=== PATIENT | male | born 1955 | race Caucasian/White ===

== ENCOUNTER 2018-03-11 12:43 | Emergency (ER) | payer OTHER, MEDICAID ==
[2018-03-11] MEDS: morphine 4 MG/ML VIAL IM (13:47)
[2018-03-11] MEDS: ONDANSETRON (ODT) 4 MG TAB ODT (13:47)
[2018-03-11 13:54] LABS: ADD UMIC YES; UR ASCORBIC ACID NEGATIVE (NEGATIVE); UR BACTERIA FEW /HPF (NONE SEEN); UR BILIRUBIN (Dip) NEGATIVE (NEGATIVE); UR BLOOD (Dip) 1+ mg/dL (NEGATIVE); UR CLARITY TURBID (CLEAR); UR COLOR YELLOW (YELLOW); UR GLUCOSE (Dip) NEGATIVE (NEGATIVE); UR KETONES (Dip) TRACE mg/dL (NEGATIVE); UR LEUKOCYTE ESTERASE (Dip) 3+ Leu/ul (NEGATIVE); UR MUCUS FEW /HPF (NONE SEEN); UR NITRITE (Dip) POSITIVE (NEGATIVE); UR RBC 28 /HPF (0-5); UR SPECIFIC GRAVITY (Dip) 1.009 (1.003-1.030); UR TOTAL PROTEIN (Dip) 2+ mg/dl (NEGATIVE); UR UROBILINOGEN (Dip) NEGATIVE (NEGATIVE); UR WBC > 182 /HPF (0-5)
[2018-03-11] MEDS: CEPHALEXIN 500 MG CAP PO (14:33)
== END 2018-03-11 14:59 | disposition home or self-care (01) ==
LOC: E/R 12:43
DX: N30.00 Acute cystitis without hematuria (principal); R33.9 Retention of urine, unspecified; E11.9 Type 2 diabetes mellitus without complications
CPT/HCPCS: 51702; 81001; 87086; 96372; 99284-25

== ENCOUNTER → 2019-02-08 | Emergency (ER) | payer OTHER ==
[2019-02-08 16:34] LABS: ADD UMIC YES; UR ASCORBIC ACID NEGATIVE (NEGATIVE); UR BACTERIA FEW /HPF (NONE SEEN); UR BILIRUBIN (Dip) NEGATIVE (NEGATIVE); UR BLOOD (Dip) 1+ mg/dL (NEGATIVE); UR CLARITY TURBID (CLEAR); UR COLOR AMBER (YELLOW); UR GLUCOSE (Dip) NEGATIVE (NEGATIVE); UR KETONES (Dip) NEGATIVE (NEGATIVE); UR LEUKOCYTE ESTERASE (Dip) 3+ Leu/ul (NEGATIVE); UR NITRITE (Dip) NEGATIVE (NEGATIVE); UR RBC 98 /HPF (0-5); UR SPECIFIC GRAVITY (Dip) 1.011 (1.003-1.030); UR SQUAMOUS EPITHELIAL CELL FEW /HPF (FEW); UR TOTAL PROTEIN (Dip) 3+ mg/dl (NEGATIVE); UR UROBILINOGEN (Dip) NEGATIVE (NEGATIVE); UR WBC > 182 /HPF (0-5)
[2019-02-08] MEDS: CIPROFLOXACIN 500 MG TAB PO (16:46)
== END | disposition home or self-care (01) ==
LOC: E/R 15:36
DX: N30.90 Cystitis, unspecified without hematuria (principal); I10 Essential (primary) hypertension; F17.210 Nicotine dependence, cigarettes, uncomplicated
CPT/HCPCS: 51702; 81001; 87086; 99283-25